=== PATIENT | female | born 1975 | race Caucasian/White ===

== ENCOUNTER 2016-06-18 19:11 | Emergency (ER) | payer MEDICAID ==
[~2016-06-18] VITALS: Ht 157.5 cm; Wt 54.5 kg
[2016-06-18] MEDS ORDERED: ACETAMINOPHEN/CODEINE 300-30 MG TABLET PO ONE (23:45)
[2016-06-18] MEDS ORDERED: KETOROLAC TROMETHAMINE 60 MG/2 ML VIAL IM ONE (23:45)
[2016-06-18 23:50] VITALS: BP 148/98
== END 2016-06-18 23:58 | disposition home or self-care (01) ==
LOC: EMS 19:12
DX: S39.012A Strain of muscle, fascia and tendon of lower back, initial encounter (principal); N92.0 Excessive and frequent menstruation with regular cycle; F32.9 Major depressive disorder, single episode, unspecified; Y04.0XXA Assault by unarmed brawl or fight, initial encounter; Y93.89 Activity, other specified; Y92.89 Other specified places as the place of occurrence of the external cause; Y99.8 Other external cause status
CPT/HCPCS: 96372; 99283; J1885